=== PATIENT | female | born 1930 | race Caucasian/White ===

== ENCOUNTER → 2016-10-28 | Outpatient (CLI) | payer MEDICARE, BC ==
[~2016-10-28] MED LIST: ACET325T51 PO; ARIP10TA15 PO; ASPI-558 PO; CALC1CAP22 PO; CARB-47 PO; CRAN1TAB6 PO; DIPH28CR TOP; DONE10TA PO; ENAL10TA PO; IPRA21SP EA NOSTRIL; LOPE-150 PO; LORA10TA62 PO; MAGN400O4 PO; MEMA28CA PO; MENT71OI TOP; MICO142O TP; MIRT7.5T11 PO; MULT-920 PO; NYST8800 TOP; PROP10TA10 PO; PROT480P PO; SENN-152 PO; VITA56.7 TOP
[2016-10-28 19:19] LABS: BLOOD, URINE 3+ (NEGATIVE); COLOR,URINE YELLOW (YELLOW); LEUKOCYTE ESTERASE ,URINE 2+ (NEGATIVE); NITRITE,URINE POSITIVE (NEGATIVE); UROBILINOGEN,URINE 0.2 EU/DL (NORMAL)
[2016-10-28 19:29] LABS: BACTERIA,URINE 4+ (NEGATIVE); RBC,URINE TNTC /HPF (0-3); SQUAMOUS EPITHELIAL CELL,UR 20-50; WBC,URINE TNTC /HPF (0-5)
== END ==
LOC: LABN.A1202 19:14
PROVIDERS: ATTEND Family Medicine
DX: N39.0 Urinary tract infection, site not specified (principal); R82.90 Unspecified abnormal findings in urine; R82.99 Other abnormal findings in urine
CPT/HCPCS: 81001; 87077; 87086; 87088; 87184; 87186

== ENCOUNTER → 2016-12-19 | Outpatient (CLI) | payer MEDICARE, BC | LOC: LABN.A1212 20:30 | PROVIDERS: ATTEND Family Medicine | DX: N39.0 Urinary tract infection, site not specified (principal) | CPT/HCPCS: 87086; 87088; 87186 ==